=== PATIENT | female | born 1935 | race Caucasian/White ===

== ENCOUNTER 2019-05-08 18:20 | Emergency (ER) | payer MEDICARE, OTHER, MEDICAID ==
[~2019-05-08] VITALS: Ht 175.2 cm; Wt 70.9 kg
--- NOTE | 2019-05-08 19:29 | Diagnostic Imaging Report ---
PROCEDURE: CT head without contrast. TECHNIQUE: Multiple contiguous axial images were obtained through the brain without the use of intravenous contrast. Auto Exposure Controls were utilized during the CT exam to meet ALARA standards for radiation dose reduction. INDICATION: Fall. Vomiting. FINDINGS: The ventricles are normal in size, shape, and position. There is no acute parenchymal hemorrhage, edema, or mass. There is no extra-axial mass or hemorrhage. There is no acute bony abnormality. IMPRESSION: No acute abnormality is seen. Dictated by: Dictated on workstation # [id number]
--- NOTE | 2019-05-08 19:47 | ED Fall/Injury ---
General Chief Complaint: Trauma-Non Activation Stated Complaint: FELL AND VOMITTING Nursing Triage Note: Pt came POV from assisted with complaints of vomiting after being found on the ground outside her bedroom in the hallway. This incident was unwitnessed. Pt has alzheimers yet denies injury. No physical injuries noted by this RN. History of Present Illness Date Seen by Provider: May 08, 2019 Time Seen by Provider: 18:50 Initial Comments 83-year-old female [facility] after being found on the floor in the doorway to her room. Her and daughter are present, they state that she is wheelchair-bound, does not ambulate, and has had Alzheimer's for approximately 12 years. They are unsure if she tried to get up and then fell. No staff or family were present. She vomited 3 times after they found her on the floor. She denies headache or nausea now. She also fell out of her wheelchair 3 days ago. Location Injury Occurred: unknown Occurred: this afternoon Context: unknown Loss of Consciousness: unsure Associated Symptoms (Fall): Denies Symptoms, Nausea/Vomiting Allergies and Home Medications Allergies Coded Allergies: mushroom (Verified Allergy, Unknown, 05/08/19) Patient Home Medication List Home Medication List Reviewed: Yes Review of Systems Review of Systems Constitutional: no symptoms reported, see HPI All Other Systems Reviewed Negative Unless Noted: Yes Past Fibhnze-Rkznwb-Vfroxn Hx Past Med/Social Hx: Reviewed Nursing Past Med/Soc Hx Patient Social History Recent Foreign Travel: No Contact w/Someone Who Travel: No Recent Infectious Disease Expo: No Physical Exam Vital Signs Vital Signs - First Documented 05/08/19 18:39 Temp 36.4 Pulse 81 Resp 14 B/P (MAP) 154/99 (117) Pulse Ox 98 Capillary Refill : Less Than 3 Seconds Height, Weight, BMI Height: '" Weight: lbs. oz. kg; 23.00 BMI Method: General Appearance: WD/WN, no apparent distress, other (head normocephalic with no contusion, lacerations or areas of tenderness.) HEENT: PERRL/EOMI, normal ENT inspection, TMs normal, pharynx normal Neck: non-tender, full range of motion, supple, normal inspection Cardiovascular: normal peripheral pulses, regular rate, rhythm Respiratory: chest non-tender, lungs clear, normal breath sounds Gastrointestinal: normal bowel sounds, non tender, soft Extremities: normal range of motion, non-tender, normal inspection, normal capillary refill Neurologic/Psychiatric: no motor/sensory deficits, alert, normal mood/affect Skin: normal color, warm/dry; No ecchymosis Progress/Results/Core Measures Results/Orders My Orders Orders - BREANN BASS Ct Head Wo (05/08/19 19:08) Lorazepam Oral Concentrate (Ativan Inten (05/08/19 20:37) Morphine Oral Concentration (Roxinol Ora (05/08/19 20:37) Vital Signs/I&O 05/08/19 18:39 Temp 36.4 Pulse 81 Resp 14 B/P (MAP) 154/99 (117) Pulse Ox 98 Blood Pressure Mean: 117 Progress Progress Note : Time: 18:50 Progress Note Patient seen and evaluated, we'll obtain CT of the head. Patient's daughter does report that she is a DO NOT RESUSCITATE. 1944 CT negative. Results discussed with the patient, and her daughter. She is denying any headache or nausea at this time. Recommended discharge to her long-term care facility. 2004 patient reports being more agitated, she is normally given Ativan and morphine every 6-8 hours. We'll give these medications orally. 2044 medications had not been sent to the emergency department from the [facility], longterm care facility and is here to transport patient. Explained to the patient's family that she can begin taking his medications as soon as she returns to her long-term care facility, she is denying pain or anxiety at this time. Discharge instructions and return precautions reviewed with the patient. Diagnostic Imaging Diagonstic Imaging: CT Plain Films/CT/US/NM/MRI: head Comments NAME: JEAN SILVA [facility] REC#: [id number] PT STATUS: REG ER : 1935 PHYSICIAN: BREANN BASS ADMIT DATE: 05/08/19/ER Signed Date of Exam: 05/08/19 CT HEAD WO PROCEDURE: CT head without contrast. TECHNIQUE: Multiple contiguous axial images were obtained through the brain without the use of intravenous contrast. Auto Exposure Controls were utilized during the CT exam to meet ALARA standards for radiation dose reduction. INDICATION: Fall. Vomiting. FINDINGS: The ventricles are normal in size, shape, and position. There is no acute parenchymal hemorrhage, edema, or mass. There is no extra-axial mass or hemorrhage. There is no acute bony abnormality. IMPRESSION: No acute abnormality is seen. Dictated by: Dictated on workstation # [id number] Dict: 05/08/191925 Trans: 05/08/191938 Interpreted by: RON JOY MD Electronically signed by: RON JOY MD 05/08/191938 Reviewed: Reviewed by Me Departure Impression Primary Impression: Fall Qualified Codes: W19.XXXA - Unspecified fall, initial encounter Additional Impression: Minor head injury Qualified Codes: S09.90XA - Unspecified injury of head, initial encounter Disposition: 01 HOME, SELF-CARE Condition: Improved Departure-Patient Inst. Decision time for Depature: 20:00 Referrals: WINSTON MARTINEZ MD (PCP/Family) Primary Care Physician Patient Instructions: Minor Head Injury (DC) Add. Discharge Instructions: Frequent observation, high risk for falls. Zofran 8 mg po every 6-8 hours for nausea and vomiting. Follow-up with primary care provider if symptoms are not improving or worsen. Return to the emergency department for new, urgent health care needs. All discharge instructions reviewed with patient and/or family. Voiced understanding. Copy Copies To 1: WINSTON MARTINEZ MD, AMY ARNP May 08, 2019 19:47
--- NOTE | 2019-05-08 20:21 | NUR ---
UPDATE OF CONDITION GIVEN TO HOSPICE NURSE MARY VIA PHONE
[2019-05-08] MEDS ORDERED: morphine (ROXINOL) 10 MG/0.5 ML oral conc 0.5 ML PO STA (20:37)
[2019-05-08] MEDS ORDERED: LORazepam ORAL CONCENTRATE 2 MG/ML 30 ML (ATIVAN) PO STA (20:37)
[2019-05-09 05:04] VITALS: BP 174/88
== END 2019-05-08 21:41 | disposition home or self-care (01) ==
LOC: EDUNIT# 18:20 → ER 18:24
DX: S09.90XA Unspecified injury of head, initial encounter (principal); G30.9 Alzheimer's disease, unspecified; F02.80 Dementia in other diseases classified elsewhere, unspecified severity, without behavioral disturbance, psychotic disturbance, mood disturbance, and anxiety; W19.XXXA Unspecified fall, initial encounter
CPT/HCPCS: 70450